=== PATIENT | female | born 1990 | race Caucasian/White ===

== ENCOUNTER 2025-02-21 23:02 | Emergency (ER) | payer SELFPAY ==
[2025-02-21 23:18] VITALS: TEMP 96.8
--- NOTE | 2025-02-21 23:23 | ERPHSYRPT ---
- History of Present Illness Time Seen by Provider: 02/21/25 23:12 Source: patient Exam Limitations: no limitations Physician History: Pt states for the past 5 days she has had a left upper toothache; denies fever, chest pain, shortness of air, vomiting, diarrhea. Home Medications: Venlafaxine HCl ER 75 mg [Effexor XR 75 MG] 150 mg PO DAILY 02/21/25 [History] - Review of Systems Constitutional: No Fever Ears, Nose, & Throat: Other (left upper toothache) Respiratory: No Dyspnea Cardiac: No Chest Pain Abdominal/Gastrointestinal: No Vomiting, No Diarrhea - Physical Exam General Appearance: alert Eye Exam: bilateral eye: PERRL, EOMI Ear Exam: bilateral ear: TM normal Nasal Exam: normal inspection Throat Exam: pharynx normal, dental tenderness (Mild tenderness, edema and erythema of gum surrounding the left maxillary K-9.) Neck Exam: normal inspection Cardiovascular/Respiratory Exam: normal breath sounds, heart sounds normal Neurologic Exam: alert, cooperative Skin Exam: warm, dry - Progress Counseled pt/family regarding: diagnosis, need for follow-up - Departure Departure Disposition: Home Clinical Impression: Tooth abscess Condition: Stable Critical Care Time: No Referrals: DOCTOR,NO FAMILY [Primary Care Provider] - Follow up/PCP as directed Instructions: Tooth Abscess (DC) Additional Instructions: Follow up with dentist tomorrow. Forms: Work/School Release Form Prescriptions: Ibuprofen 600 mg PO Q6HPRN PRN #20 tablet PRN Reason: Pain clindamycin HCL [Clindamycin HCl] 300 mg PO QID #40 cap
[2025-02-21] MEDS ORDERED: CLEOCIN 150 MG CAPSULE ONE (23:28)
[2025-02-21] MEDS ORDERED: NORCO 5/325 MG ONE (23:28)
[2025-02-21] MEDS: NORCO 5/325 MG PO ONE (23:32)
[2025-02-21] MEDS: CLEOCIN 150 MG CAPSULE PO ONE ×2 (23:33→23:34)
[2025-02-21 23:43] VITALS: BP 173/97; PULSE 77; RESP 18; O2SAT 100
== END 2025-02-21 23:57 | disposition home or self-care (01) ==
LOC: ED 23:02
DX: K04.7 Periapical abscess without sinus (principal); K08.89 Other specified disorders of teeth and supporting structures; Z79.899 Other long term (current) drug therapy
CPT/HCPCS: 99283; A9270-GY